=== PATIENT | female | born 1965 | race Caucasian/White ===

== ENCOUNTER 2021-09-21 15:53 | Inpatient (IN) | payer OTHER, MEDICARE ==
[~2021-09-21] VITALS: Ht 177.8 cm; Wt 72.6 kg
[~2021-09-21 15:53] MED LIST: CELEBREX200 MG PO; ESTRACE1 MG PO; FLEXERIL 10 MG10 MG PO; FOLIC ACID 1 MG1 MG PO; METHOTREXATE2.5 MG PO; PERCOCET 10-321 EACH PO; PHENERGAN 25 MG25 M1 PO; PREDNISONE10 MG PO; PRINIVIL20 MG PO; TOPROL XL50 MG PO; VITAMIN D250000 UNIT PO
[2021-09-21 16:28] LABS: HEMOGLOBIN 12.8 gm/dl (12.3-15.3); RED BLOOD COUNT 4.36 M/UL (4.00-5.10); WHITE BLOOD COUNT 11.7 K/UL (4.5-11.0)
[2021-09-21 16:46] LABS: BUN/CREATININE RATIO 10 (0-10)
[2021-09-22 04:31] LABS: HEMOGLOBIN 11.1 gm/dl (12.3-15.3); RED BLOOD COUNT 3.87 M/UL (4.00-5.10); WHITE BLOOD COUNT 8.8 K/UL (4.5-11.0)
[2021-09-22 05:02] LABS: BUN/CREATININE RATIO 12 (0-10)
[2021-09-22] MEDS ORDERED: ARAVA20 MG PO (07:35)
[2021-09-22] MEDS ORDERED: METHYLPREDNISOLO4 MG PO (07:39)
[2021-09-22] MEDS ORDERED: NORVASC5 MG PO (07:40)
[2021-09-22] MEDS ORDERED: PLAQUENIL 200200 MG PO (07:40)
[2021-09-22] MEDS ORDERED: TOPAMAX100 MG PO (07:41)
[2021-09-22] MEDS ORDERED: TRAMADOL HCL50 MG PO (07:42)
[2021-09-22] MEDS ORDERED: DAILY VALUE1 EACH PO (07:43)
[2021-09-22] MEDS ORDERED: TYLENOL EXTRA500 MG PO (13:27)
[2021-09-22] MEDS ORDERED: CARVEDILOL12.5 MG PO (13:30)
[2021-09-22] MEDS ORDERED: CLARITHROMYCIN500 MG PO (13:31)
[2021-09-22] MEDS ORDERED: ARTHRITIS PAIN100 GM TOP (13:33)
[2021-09-22] MEDS ORDERED: CYMBALTA 30 MG30 MG PO (13:34)
[2021-09-22] MEDS ORDERED: ETHAMBUTOL HCL400 MG PO (13:34)
[2021-09-22] MEDS ORDERED: KETOCONAZOLE15 GM TOP (13:36)
[2021-09-22] MEDS ORDERED: PROTONIX40 MG PO (13:36)
[2021-09-22] MEDS ORDERED: SPIRONOLACTONE25 MG PO (13:36)
[2021-09-22] MEDS ORDERED: CLOFAZIMINE PO (13:37)
[2021-09-22] MEDS ORDERED: HYDROXYZINE HCL10 MG PO (13:39)
[2021-09-22] MEDS ORDERED: ZINC SULFATE PO (13:39)
[2021-09-22] MEDS ORDERED: MELATONIN3 MG PO (13:40)
[2021-09-22] MEDS ORDERED: ZOFRAN ODT 4 MG4 MG SL (13:41)
[2021-09-22] MEDS ORDERED: METHOCARBAMOL500 MG PO (13:41)
[2021-09-23 06:17] LABS: HEMOGLOBIN 9.7 gm/dl (12.3-15.3); WHITE BLOOD COUNT 6.8 K/UL (4.5-11.0)
[2021-09-23 06:41] LABS: RED BLOOD COUNT 3.38 M/UL (4.00-5.10)
[2021-09-23 07:51] LABS: BUN/CREATININE RATIO 7 (0-10)
[2021-09-24 06:59] LABS: HEMOGLOBIN 10.6 gm/dl (12.3-15.3); RED BLOOD COUNT 3.69 M/UL (4.00-5.10)
[2021-09-24 07:17] LABS: WHITE BLOOD COUNT 12.5 K/UL (4.5-11.0)
[2021-09-24 07:24] LABS: BUN/CREATININE RATIO 7 (0-10)
[2021-09-24 11:42] LABS: ADENOVIRUS F 40/41 Not Detected (Negative); ASTROVIRUS Not Detected (Negative); CAMPYLOBACTER Not Detected (Negative); CLOSTRIDIUM DIFFICILE TOX A/B Not Detected (Negative); CRYPTOSPORIDIUM Not Detected (Negative); E.COLI 0157 Not Detected (Negative); ENTAMOEBA HISTOLYTICA Not Detected (Negative); ENTEROAGGREGATIVE E.COLI (EAEC Not Detected (Negative); ENTEROPATHOGENIC E.COLI (EPEC) Not Detected (Negative); ENTEROTOXIGENIC E.COLI (ETEC) Not Detected (Negative); GIARDIA LAMBLIA Not Detected (Negative); NOROVIRUS GI/GII Not Detected (Negative); PLESIOMONAS SHIGELLOIDES Not Detected (Negative); ROTOVIRUS A Not Detected (Negative); SALMONELLA Not Detected (Negative); SAPOVIRUS Not Detected (Negative); SHIG/ENTEROINVAS.ECOLI (EIEC) Not Detected (Negative); SHIGA-LIK TOX.PRO.E.COLI (STEC Not Detected (Negative); VIBRIO Not Detected (Negative); VIBRIO CHOLERAE Not Detected (Negative); YERSINIA ENTEROCOLITICA Not Detected (Negative)
[2021-09-25 07:32] LABS: HEMOGLOBIN 10.2 gm/dl (12.3-15.3); RED BLOOD COUNT 3.54 M/UL (4.00-5.10); WHITE BLOOD COUNT 14.8 K/UL (4.5-11.0)
[2021-09-25 07:51] LABS: BUN/CREATININE RATIO 8 (0-10)
[2021-09-25 08:13] LABS: HIV AB/P24 AG SCREEN Non Reactive (Non Reactive)
[2021-09-25 14:13] LABS: ABSOLUTE CD 4 HELPER 750 /uL (359-1519); BASO (ABSOLUTE) 0.2 x10E3/uL (0.0-0.2); BASOS 1 % (Not Estab.); EOS 4 % (Not Estab.); EOS (ABSOLUTE) 0.5 x10E3/uL (0.0-0.4); HEMATOCRIT 31.9 % (34.0-46.6); HEMOGLOBIN 10.1 g/dL (11.1-15.9); IMMATURE GRANS (ABS) 0.1 x10E3/uL (0.0-0.1); IMMATURE GRANULOCYTES 1 % (Not Estab.); LYMPHS 12 % (Not Estab.); LYMPHS (ABSOLUTE) 1.5 x10E3/uL (0.7-3.1); MCH 28.3 pg (26.6-33.0); MCHC 31.7 g/dL (31.5-35.7); MCV 89 fL (79-97); MONOCYTES 16 % (Not Estab.); MONOCYTES(ABSOLUTE) 2.1 x10E3/uL (0.1-0.9); NEUTROPHILS 66 % (Not Estab.); NEUTROPHILS (ABSOLUTE) 8.4 x10E3/uL (1.4-7.0); PLATELETS 315 x10E3/uL (150-450); RBC 3.57 x10E6/uL (3.77-5.28); RDW 13.9 % (11.7-15.4); WBC 12.8 x10E3/uL (3.4-10.8)
[2021-09-26 06:53] LABS: HEMOGLOBIN 8.8 gm/dl (12.3-15.3)
[2021-09-26 06:55] LABS: RED BLOOD COUNT 3.09 M/UL (4.00-5.10); WHITE BLOOD COUNT 9.7 K/UL (4.5-11.0)
[2021-09-26 07:21] LABS: BUN/CREATININE RATIO 9 (0-10)
[2021-09-27 06:28] LABS: BUN/CREATININE RATIO 8 (0-10)
[2021-09-28 06:41] LABS: HEMOGLOBIN 9.4 gm/dl (12.3-15.3); RED BLOOD COUNT 3.32 M/UL (4.00-5.10); WHITE BLOOD COUNT 9.1 K/UL (4.5-11.0)
[2021-09-28 07:05] LABS: BUN/CREATININE RATIO 7 (0-10)
[2021-09-29 06:45] LABS: HEMOGLOBIN 10.3 gm/dl (12.3-15.3); RED BLOOD COUNT 3.59 M/UL (4.00-5.10)
[2021-09-29 07:31] LABS: BUN/CREATININE RATIO 5 (0-10)
--- NOTE | 2021-09-29 18:07 | NUR ---
WOUND CARE PERFORMED PER PHYSICIAN'S ORDER. PATIENT TOLERATED WELL.
[2021-09-30 06:28] LABS: HEMOGLOBIN 10.3 gm/dl (12.3-15.3); RED BLOOD COUNT 3.73 M/UL (4.00-5.10); WHITE BLOOD COUNT 10.8 K/UL (4.5-11.0)
[2021-09-30 07:17] LABS: BUN/CREATININE RATIO 6 (0-10)
[2021-10-01 06:22] LABS: HEMOGLOBIN 9.2 gm/dl (12.3-15.3); WHITE BLOOD COUNT 11.4 K/UL (4.5-11.0)
[2021-10-01 06:24] LABS: RED BLOOD COUNT 3.35 M/UL (4.00-5.10)
[2021-10-01 07:01] LABS: BUN/CREATININE RATIO 10 (0-10)
[2021-10-02 06:27] LABS: HEMOGLOBIN 9.3 gm/dl (12.3-15.3); RED BLOOD COUNT 3.25 M/UL (4.00-5.10); WHITE BLOOD COUNT 12.9 K/UL (4.5-11.0)
[2021-10-02 06:56] LABS: BUN/CREATININE RATIO 14 (0-10)
[2021-10-03 07:44] LABS: HEMOGLOBIN 9.7 gm/dl (12.3-15.3); RED BLOOD COUNT 3.52 M/UL (4.00-5.10); WHITE BLOOD COUNT 12.4 K/UL (4.5-11.0)
[2021-10-03 07:51] LABS: BUN/CREATININE RATIO 11 (0-10)
[2021-10-04 06:59] LABS: BUN/CREATININE RATIO 12 (0-10); HEMOGLOBIN 9.7 gm/dl (12.3-15.3); RED BLOOD COUNT 3.51 M/UL (4.00-5.10); WHITE BLOOD COUNT 10.7 K/UL (4.5-11.0)
[2021-10-05 07:54] LABS: HEMOGLOBIN 10.3 gm/dl (12.3-15.3); RED BLOOD COUNT 3.63 M/UL (4.00-5.10); WHITE BLOOD COUNT 10.7 K/UL (4.5-11.0)
[2021-10-05 08:08] LABS: BUN/CREATININE RATIO 8 (0-10)
[2021-10-06 06:36] LABS: HEMOGLOBIN 9.8 gm/dl (12.3-15.3); RED BLOOD COUNT 3.56 M/UL (4.00-5.10); WHITE BLOOD COUNT 9.3 K/UL (4.5-11.0)
[2021-10-06 07:15] LABS: BUN/CREATININE RATIO 11 (0-10)
[2021-10-07 06:32] LABS: HEMOGLOBIN 9.8 gm/dl (12.3-15.3); RED BLOOD COUNT 3.53 M/UL (4.00-5.10); WHITE BLOOD COUNT 9.3 K/UL (4.5-11.0)
[2021-10-07 07:06] LABS: BUN/CREATININE RATIO 12 (0-10)
[2021-10-09 06:37] LABS: HEMOGLOBIN 9.5 gm/dl (12.3-15.3); RED BLOOD COUNT 3.38 M/UL (4.00-5.10); WHITE BLOOD COUNT 9.9 K/UL (4.5-11.0)
[2021-10-09 06:51] LABS: BUN/CREATININE RATIO 13 (0-10)
--- NOTE | 2021-10-09 14:34 | NUR ---
PTS DAILY DRESSING CHANGES DONE TO LEFT ELBOW AND LEFT MCKEON
[2021-10-10 07:11] LABS: BUN/CREATININE RATIO 11 (0-10)
--- NOTE | 2021-10-10 14:53 | NUR ---
WOUND CARE PERFORMED PER PHYSICIAN'S ORDER. PATIENT TOLERATED WELL.
[2021-10-11] MEDS ORDERED: LISINOPRIL20 MG PO (10:03)
[2021-10-11] MEDS ORDERED: TRAMADOL HCL50 MG PO (10:03)
[2021-10-11] MEDS ORDERED: FERROUS GLUCON324 M1 PO (10:28)
--- NOTE | 2021-10-11 14:10 | NUR ---
REPORT CALLED TO GAGAN AT [facility].
== END 2021-10-11 15:20 | DRG 871 ==
LOC: ER1 15:53 → M/S 19:06 → CDU 19:06 → M/S 09-22 11:45
PROVIDERS: Family Medicine; Internal Medicine; Internal Medicine Infectious Disease; ADMIT Internal Medicine
PROC: 0DH67UZ Insertion of Feeding Device into Stomach, Via Natural or Artificial Opening (ICD-10-PCS; principal; 2021-10-01)
PROC: 3E0G76Z Introduction of Nutritional Substance into Upper GI, Via Natural or Artificial Opening (ICD-10-PCS; 2021-10-01)
DX: A41.51 Sepsis due to Escherichia coli [E. coli] (principal); L89.013 Pressure ulcer of right elbow, stage 3; L89.024 Pressure ulcer of left elbow, stage 4; Z20.822 Contact with and (suspected) exposure to COVID-19; E43 Unspecified severe protein-calorie malnutrition; N30.00 Acute cystitis without hematuria; E87.2 Acidosis; K52.1 Toxic gastroenteritis and colitis; I10 Essential (primary) hypertension; Z96.612 Presence of left artificial shoulder joint; E88.09 Other disorders of plasma-protein metabolism, not elsewhere classified; Z96.611 Presence of right artificial shoulder joint; E16.2 Hypoglycemia, unspecified; E87.5 Hyperkalemia; E87.6 Hypokalemia; D50.9 Iron deficiency anemia, unspecified; B96.20 Unspecified Escherichia coli [E. coli] as the cause of diseases classified elsewhere; T36.3X5A Adverse effect of macrolides, initial encounter; E86.0 Dehydration; M06.9 Rheumatoid arthritis, unspecified; M81.0 Age-related osteoporosis without current pathological fracture; R53.81 Other malaise; Z87.440 Personal history of urinary (tract) infections; Z88.8 Allergy status to other drugs, medicaments and biological substances; Z82.49 Family history of ischemic heart disease and other diseases of the circulatory system; Z79.1 Long term (current) use of non-steroidal anti-inflammatories (NSAID); Z79.811 Long term (current) use of aromatase inhibitors; Z79.52 Long term (current) use of systemic steroids; Z79.2 Long term (current) use of antibiotics; Z68.22 Body mass index [BMI] 22.0-22.9, adult; Z90.710 Acquired absence of both cervix and uterus
CPT/HCPCS: 0240U; 36415; 71045; 73080; 73590; 80048; 80053; 80202; 81001; 82607; 82728; 82746; 82962; 83540; 83550; 83605; 83735; 83880; 84100; 84132; 84439; 84443; 85025; 85027; 85610; 85730; 86140; 86361; 87040; 87077; 87086; 87186; 87389; 87507; 93005; 97110; 97110-GP-CQ; 97116-GP-CQ; 97162; 97166; 97530; 97530-GP-CQ; 99285; C9113; J0692; J0780; J1650; J2405; J2550; J2765; J2920; J3370; J3475; J3480; J7030; J7070; U0002

== ENCOUNTER 2021-12-11 09:02 | Emergency (ER) | payer OTHER, MEDICARE ==
[~2021-12-11 09:02] MED LIST changes: +ARAVA20 MG PO; +ARTHRITIS PAIN100 GM TOP; +CARVEDILOL12.5 MG PO; +CLARITHROMYCIN500 MG PO; +CLOFAZIMINE PO; +CYMBALTA 30 MG30 MG PO; +DAILY VALUE1 EACH PO; +ETHAMBUTOL HCL400 MG PO; +FERROUS GLUCON324 M1 PO; +HYDROXYZINE HCL10 MG PO; +KETOCONAZOLE15 GM TOP; +LISINOPRIL20 MG PO; +MELATONIN3 MG PO; +METHOCARBAMOL500 MG PO; +METHYLPREDNISOLO4 MG PO; +NORVASC5 MG PO; +PLAQUENIL 200200 MG PO; +PROTONIX40 MG PO; +SPIRONOLACTONE25 MG PO; +TOPAMAX100 MG PO; +TRAMADOL HCL50 MG PO; +TYLENOL EXTRA500 MG PO; +ZINC SULFATE PO; +ZOFRAN ODT 4 MG4 MG SL
== END 2021-12-11 13:48 | disposition home or self-care (01) ==
LOC: ER1 09:02
DX: S43.025A Posterior dislocation of left humerus, initial encounter (principal); I10 Essential (primary) hypertension; W06.XXXA Fall from bed, initial encounter; Y92.009 Unspecified place in unspecified non-institutional (private) residence as the place of occurrence of the external cause
CPT/HCPCS: 23650; 73030; 96374; 96375; 99152; 99283; J2270; J2405; J2704